=== PATIENT | male | born 1975 | race African-American/Black ===

== ENCOUNTER 2017-02-02 21:51 | Inpatient (IN) ==
[2017-02-02] MEDS ORDERED: 0.9 % Sodium Chloride 1,000 ML IVC ONE (22:51)
[2017-02-02] MEDS ORDERED: Aspirin 325 MG TABLET PO ONE (23:35)
[2017-02-02] MEDS ORDERED: Nitroglycerin 1 INCH/GM PACKET TP ONE (23:35)
[2017-02-02 23:39] LABS: Basophils % 0.2 %; Eosinophils % 0.3 %; Hematocrit 48.6 % (37.5-50.1); Hemoglobin 17.5 g/dL (12.9-16.9); Immature Granulocytes % 0.3 % (0-4); Immature Platelets 4.6 % (1.1-6.1); Lymphocytes # 1.7 K/mcL (0.6-4.6); Lymphocytes % 16.3 %; Mean Corpuscular Hemoglobin 29.8 pg (28.0-33.3); Mean Corpuscular Volume 82.7 fL (83.0-100.0); Mean Platelet Volume 10.2 fL (9.4-12.4); Monocytes % 9.6 %; Neutrophils # 7.6 K/mcL (1.6-8.9); Platelet Count 188 K/mcL (140-400); Red Blood Count 5.88 M/mcL (4.19-5.50); Red Cell Distribution Width 11.9 % (11.5-14.5); Segmented Neutrophils % 73.3 %
[2017-02-02] MEDS ORDERED: Heparin 25,000 UNIT/500 ML D5W 25,000 UNIT/500 ML MLS IVC SCH (23:45)
[2017-02-02] MEDS ORDERED: *HR* Heparin 5,000 UNIT/ML VIAL IVP ONE (23:58)
[2017-02-02] MEDS ORDERED: *HR* Heparin 5,000 UNIT/ML VIAL IVP PRN ×2 (23:58)
[2017-02-03 00:12] LABS: Alanine Aminotransferase 37 Units/L (0-55); Albumin 5.4 g/dL (3.5-5.0); Albumin/Globulin Ratio 1.5 (1.1-2.2); Alkaline Phosphatase 72 Units/L (38-126); Aspartate Amino Transferase 90 Units/L (5-34); BUN/Creatinine Ratio 30 (6-26); Bilirubin,Direct 0.9 mg/dL (0.0-0.5); Bilirubin,Indirect 1.5 mg/dL (0.0-1.2); Blood Urea Nitrogen 85 mg/dL (8-26); Carbon Dioxide 26 mEq/L (19-29); Chloride 87 mEq/L (98-109); Globulin 3.5 g/dL (2.4-3.5); Glucose 102 mg/dL (70-99); Osmolality,Calculated 302 (280-300); Potassium 3.7 mEq/L (3.5-4.5); Sodium 133 mEq/L (136-145); Total Protein 8.9 g/dL (6.0-8.3); eGFR For African Americans 29 (> 60); eGFR For Non-African Americans 24 (> 60)
[2017-02-03 00:14] LABS: Bilirubin,Total 2.4 mg/dL (0.2-1.2)
[2017-02-03 00:28] LABS: INR 1.2; Prothrombin Time 12.6 Seconds (9.4-12.1)
[2017-02-03 00:28] LABS: Bilirubin,Urine Small (Negative); Blood,Urine Moderate (Negative); Clarity,Urine Cloudy (Clear); Color,Urine Yellow (Yellow); Glucose,Urine (UA) Normal (Normal); Ketones,Urine 15 mg/dL (Negative); Leukocyte Esterase,Urine Negative (Negative); Nitrite,Urine Negative (Negative); PH,Urine 5.5 pH Units (5.0-8.0); Protein,Urine 30 mg/dL (Neg-Trace); Specific Gravity,Urine 1.026 (1.010-1.025); Urobilinogen,Urine Normal (Normal)
[2017-02-03 00:30] LABS: Bacteria,Urine None Seen per hpf (None-Few); Squamous Epithelial Cell,Urine Many per lpf (None-Few); WBC,Urine 0-3 per hpf (0-3)
[2017-02-03 00:31] LABS: Activated Partial Thrombo Time 28.5 Seconds (26.0-36.0)
[2017-02-03 00:35] LABS: Amphetamine Screen,Urine Negative ng/mL (Cutoff=1000); Barbiturate Screen,Urine Negative ng/mL (Cutoff=200); Benzodiazepines Screen,Urine Negative ng/mL (Cutoff=200); Cannabinoid Screen,Urine Positive ng/mL (Cutoff = 50); Cocaine Screen,Urine Negative ng/mL (Cutoff= 300); Opiate Screen,Urine Negative ng/mL (Cutoff=300); Phencyclidine Screen,Urine Negative ng/mL (Cutoff=25)
[2017-02-03 00:41] LABS: Hyaline Casts,Urine Few per lpf (None-Few)
[2017-02-03 00:49] LABS: Ethanol < 10 mg/dL (0-10); Salicylate < 5.0 mg/dL (15-30)
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
[2017-02-03 01:07] LABS: Thyroid Stimulating Hormone 1.374 mcIU/mL (0.350-4.840)
[2017-02-03] MEDS ORDERED: Acetaminophen 325 MG TABLET PO PRN (01:25)
[2017-02-03] MEDS ORDERED: Ondansetron 4 MG/2 ML VIAL IVP PRN (01:25)
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
[2017-02-03] MEDS: 0.9 % Sodium Chloride 1,000 ML IVC SCH ×3 (03:02→21:41)
[2017-02-03] MEDS: levETIRAcetam 250 MG TABLET PO SCH ×3 (03:19→21:41)
[2017-02-03] MEDS: *HR* Heparin 5,000 UNIT/ML VIAL SQ SCH ×3 (06:29→21:40)
[2017-02-03 06:51] LABS: Albumin/Globulin Ratio 1.4 (1.1-2.2); Calcium 8.7 mg/dL (8.6-10.8); Globulin 2.9 g/dL (2.4-3.5)
[2017-02-03 06:58] LABS: Albumin 4.1 g/dL (3.5-5.0); Bilirubin,Total 2.3 mg/dL (0.2-1.2); Potassium 3.5 mEq/L (3.5-4.5)
[2017-02-03 07:00] LABS: Basophils % 0.3 %; Eosinophils # 0.1 K/mcL (0.0-0.6); Eosinophils % 0.9 %; Hematocrit 41.4 % (37.5-50.1); Immature Granulocytes % 0.3 % (0-4); Lymphocytes % 25.1 %; Mean Corpuscular Hemoglobin 29.3 pg (28.0-33.3); Mean Corpuscular Volume 83.6 fL (83.0-100.0); Mean Platelet Volume 9.7 fL (9.4-12.4); Monocytes # 0.7 K/mcL (0.0-1.3); Monocytes % 9.1 %; Neutrophils # 5.1 K/mcL (1.6-8.9); Platelet Count 171 K/mcL (140-400); Red Blood Count 4.95 M/mcL (4.19-5.50); Red Cell Distribution Width 11.9 % (11.5-14.5); Segmented Neutrophils % 64.3 %
[2017-02-03 07:23] LABS: Hemoglobin 14.5 g/dL (12.9-16.9)
[2017-02-03] MEDS: Divalproex (12 HR) 500 MG TABLET PO SCH ×2 (08:54→21:41)
--- NOTE | 2017-02-03 15:39 | Electrocardiograph Report ---
[address] [place], [place] [address] Test Date: 2017-02-02 Pat Name: Austen Bacon Department: 102 Room: 2NE22 Gender: M Stem Sizer: Ekp : 1975 Requested By: Ludin Lincoln Order Number: [id number] Reading MD: Nick Trinh Measurements Intervals [place] Rate: 93 P: 84 [place]: 127 QRS: 102 QRSD: 93 T: 53 QT: 351 QTc: 401 Interpretive Statements SINUS RHYTHM RIGHT ATRIAL ENLARGEMENT INCOMPLETE RIGHT BUNDLE BRANCH BLOCK POSSIBLE RIGHT VENTRICULAR HYPERTROPHY ST ELEVATION, CONSIDER ANTERIOR INJURY Electronically Signed On 02-03-2017 15:37:18 EDT by Nick Trinh
--- NOTE | 2017-02-03 15:40 | Electrocardiograph Report ---
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
--- NOTE | 2017-02-03 17:35 | Event Note ---
Date of Encounter: 02/03/17 Time of Encounter: 09:15 41-year-old male with history of cocaine abuse, cardiac arrest and anoxic brain injury following cocaine overdose, is admitted with confusion and altered mental status. Patient was also noted to have severe dehydration with acute kidney injury and abnormal EKG, which likely consists of old changes. Patient seen and examined at bedside. Reports no chest pain, shortness of breath. He is noted to be alert and oriented to person and place. He does not remember the reason for his admission. Chest-S1, S2 heard. Regular rate and rhythm. Lungs are clear to auscultation. Labs reviewed-creatinine is noted to be improving to 1.8 today, mild troponin leak noted to be normalized today, slightly elevated AST and total bilirubin EKG shows ST elevation in anterior leads, old changes Acute encephalopathy-could be related to marijuana use in the setting of an anoxic brain injury. Currently improving, almost at baseline. Urine drug screen positive for marijuana. Serum alcohol level normal. office services clerk consult, anticipate discharge in a.m. Mild troponin elevation-may not be related to [place]. Likely due to dehydration. Pre renal acute kidney injury secondary to dehydration-patient was noted to have poor oral intake for the last few days and found to be wandering on the streets. Continue IV hydration, serum creatinine noted to be improving. Continue to monitor and avoid nephrotoxic agents.
[2017-02-04] MEDS: *HR* Heparin 5,000 UNIT/ML VIAL SQ SCH ×3 (06:38→21:08)
[2017-02-04] MEDS: 0.9 % Sodium Chloride 1,000 ML IVC SCH (06:39)
[2017-02-04 06:57] LABS: Alanine Aminotransferase 28 Units/L (0-55); Albumin/Globulin Ratio 1.3 (1.1-2.2); Alkaline Phosphatase 48 Units/L (38-126); Aspartate Amino Transferase 60 Units/L (5-34); BUN/Creatinine Ratio 29 (6-26); Bilirubin,Total 1.7 mg/dL (0.2-1.2); Calcium 8.3 mg/dL (8.6-10.8); Carbon Dioxide 30 mEq/L (19-29); Chloride 101 mEq/L (98-109); Globulin 2.5 g/dL (2.4-3.5); Glucose 84 mg/dL (70-99); Osmolality,Calculated 288 (280-300); Sodium 137 mEq/L (136-145); Total Protein 5.7 g/dL (6.0-8.3); eGFR For African Americans > 60 (> 60); eGFR For Non-African Americans > 60 (> 60)
[2017-02-04 06:59] LABS: Albumin 3.2 g/dL (3.5-5.0); Blood Urea Nitrogen 27 mg/dL (8-26)
[2017-02-04] MEDS: levETIRAcetam 250 MG TABLET PO SCH ×2 (09:29→21:09)
[2017-02-04] MEDS: Divalproex (12 HR) 500 MG TABLET PO SCH ×2 (09:30→21:10)
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
[2017-02-05] MEDS: *HR* Heparin 5,000 UNIT/ML VIAL SQ SCH ×3 (06:02→20:15)
[2017-02-05] MEDS: levETIRAcetam 250 MG TABLET PO SCH ×2 (08:13→20:14)
[2017-02-05] MEDS: Divalproex (12 HR) 500 MG TABLET PO SCH ×2 (08:13→20:15)
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
[2017-02-05] MEDS: Sennosides/Docusate Sodium TABLET PO SCH ×2 (16:05→20:15)
[2017-02-05] MEDS: Mirtazapine 15 MG TABLET PO SCH (20:15)
[2017-02-06] MEDS: *HR* Heparin 5,000 UNIT/ML VIAL SQ SCH ×3 (05:06→21:10)
[2017-02-06] MEDS: levETIRAcetam 250 MG TABLET PO SCH ×2 (08:01→21:11)
[2017-02-06] MEDS: Sennosides/Docusate Sodium TABLET PO SCH ×2 (08:02→21:11)
[2017-02-06] MEDS: Divalproex (12 HR) 500 MG TABLET PO SCH ×2 (08:02→21:10)
--- NOTE | 2017-02-06 11:45 | Internal Med Progress Note ---
Date of Encounter: 02/06/17 Time of Encounter: 11:38 - Assessment and plan (1) MARIZA (acute kidney injury) Current Visit: Yes Status: Resolved Assessment and plan: Patient is currently medically stable. social services director is on board to safely discharge patient. Given his history of an anoxic brain injury and admission for acute renal failure and dehydration due to being found on the streets, he is at risk for further morbidity and readmission and he cannot live alone at this time. He would therefore need 24-hour supervision at home or long-term care placement. He is more talkative today and refuses to be placed at a facility as he would have no friends and does not like to be living with strangers, and he wants to continue to smoke. Continue to monitor. Improving appetite with Mirtazapine; continue Senna and Colace; (2) Dehydration Current Visit: Yes Status: Resolved (3) Elevated troponin Current Visit: Yes Status: Resolved (4) Acute encephalopathy Current Visit: Yes Status: Resolved (5) Cocaine abuse Current Visit: Yes Status: Chronic (6) History of seizure disorder Current Visit: Yes Status: Chronic Assessment and plan: Continue antiepileptics. Seizure precautions. (7) Anoxic brain injury Current Visit: Yes Status: Chronic - Subjective Interval history: Denies new complaints; reports getting tired of waiting in the hospital and wants to go home; does not want to be placed at [facility] care facility; talks more today; improved appetite; - Constitutional Vitals: Temp Pulse Resp BP Pulse Ox 97.9 F 58 18 119/77 97 02/06/17 07:51 02/06/17 07:51 02/06/17 07:51 02/06/17 07:51 02/06/17 07:51 General appearance: Present: cooperative, A&O X 2 (Alert and oriented to self and place; ), underweight. Absent: answers questions appropriately - Respiratory Respiratory exam: Present: CTAB. Absent: accessory muscle use, rales, rhonchi, wheezes - Cardiovascular Cardiovascular exam: Present: RRR, +S1, +S2. Absent: diastolic murmur, gallop, rubs, systolic murmur Internal Medicine: Result - Labs CBC & Chem 7: 02/03/17 06:26 02/04/17 06:00 - ABG Interpretation ABG results: PT/INR, D-dimer PT 12.6 Seconds (9.4-12.1) H 02/02/17 00:15 Consult Discharge Plan - Plan Additional Instructions: F/up with PCP in 1-2 weeks Referrals: Nick Moreno MD [Primary Care Provider] - 02/11/17 3:00 pm
[2017-02-06] MEDS: Nicotine 21 MG PATCH.TD24 TD SCH (16:18)
[2017-02-06] MEDS ORDERED: clonazePAM 1 MG TABLET PO ONE (21:08)
[2017-02-06] MEDS: Mirtazapine 15 MG TABLET PO SCH (21:11)
[2017-02-07] MEDS: *HR* Heparin 5,000 UNIT/ML VIAL SQ SCH (05:52)
[2017-02-07 08:41] VITALS: BP 93/66
[2017-02-07] MEDS: Divalproex (12 HR) 500 MG TABLET PO SCH (08:49)
[2017-02-07] MEDS: Sennosides/Docusate Sodium TABLET PO SCH (08:49)
[2017-02-07] MEDS: levETIRAcetam 250 MG TABLET PO SCH (08:49)
[2017-02-07] MEDS: Nicotine 21 MG PATCH.TD24 TD SCH (08:50)
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
== END 2017-02-07 14:09 | disposition home or self-care (01) | DRG 469 ==
LOC: EMEROO 21:51 → 2NENU 21:51
PROVIDERS: ADMIT Internal Medicine; ATTEND Internal Medicine

== ENCOUNTER 2017-07-21 14:50 | Observation (INO) ==
[2017-07-21] MEDS ORDERED: 0.9 % Sodium Chloride 1,000 ML IVC ONE ×2 (14:53→17:06)
--- NOTE | 2017-07-21 15:02 | Emergency Department Note ---
Disposition Clinical Impression: Altered awareness, transient Disposition: Admitted As Inpatient Condition: Undetermined Time of Disposition: 18:12 Altered Mental Status HPI - General Chief Complaint: ED Altered Mental Status Stated Complaint: AMS Time Seen by Provider: 07/21/17 14:53 Nursing Notes Reviewed: Yes Vital Signs Reviewed: Yes - History of Present Illness HPI Narrative: 42-year-old male who was found acutely confused after leaving [facility] within the past hour. EMS states the patient was unable to provide them with any information concerning his background, past medical history. EMS states blood sugar was 119. Patient alert and oriented only to himself. Patient denies any symptoms pain or otherwise. He states that he has a very bad memory but cannot provide reasons why. - Related Data Home Medications Medication Instructions Recorded Confirmed Divalproex (12 HR) [Depakote (12 1,000 mg PO HS 02/03/17 02/03/17 HR)] Divalproex (12 HR) [Depakote (12 500 mg PO QAM 02/03/17 02/03/17 HR)] LevETIRAcetam [Keppra] 1,000 mg PO BID 02/03/17 07/21/17 Allergies Allergy/AdvReac Type Severity Reaction Status Date / Time No Known Allergies Allergy Verified 07/21/17 14:51 All systems ED: reviewed and negative except as stated. Review of Systems: As Per HPI Constitutional: Denies: fever, chills, weakness Eyes: Denies: vision change ENT ED: Denies: congestion Cardiovascular: Denies: chest pain Respiratory: Denies: cough, dyspnea Gastrointestinal: Denies: abdominal pain, nausea, vomiting Genitourinary: Denies: urgency, dysuria Musculoskeletal: Denies: back pain, neck pain Integumentary: Denies: rash Neurological: Denies: headache Psychiatric: Denies: anxiety Endocrine: Denies: fatigue Past Medical History - Past Medical History Attestation: Yes The following information was validated with the patient. Source: patient, nursing notes reviewed Medical history: Reports: myocardial infarction, seizures Surgical history: Reports: orthopedic, other Psychiatric history: Reports: no psych history - Social History Smoking Status: Current every day smoker Smokeless Tobacco Status: No Alcohol use: Reports: occasionally Drug use: Reports: marijuana Physical Exam Vital Signs Temperature 98.6 F 07/21/17 14:51 Pulse Rate 104 07/21/17 14:51 Respiratory Rate 20 07/21/17 14:51 Blood Pressure 141/104 07/21/17 14:51 O2 Sat by Pulse Oximetry 99 07/21/17 14:51 Temperature 98.6 F 07/21/17 14:51 Pulse Rate 104 07/21/17 14:51 Respiratory Rate 20 07/21/17 14:51 Blood Pressure 141/104 07/21/17 14:51 O2 Sat by Pulse Oximetry 99 07/21/17 14:51 Oxygen Delivery Oxygen Delivery Room Air 42-year-old male who is alert and oriented 3. - General Limitations: no limitations General appearance: alert, in no apparent distress - Head Head exam: atraumatic, normocephalic, normal inspection - Eye Eye exam: Present: normal appearance, PERRL, EOMI - ENT ENT exam: normal exam, normal oropharynx, mucous membranes moist - Neck Neck exam: Present: normal inspection, full ROM, trachea midline - Chest Chest inspection: Present: normal inspection, symmetric chest wall rise - Respiratory Respiratory exam: Present: normal lung sounds bilaterally - Cardiovascular Cardiovascular exam: Present: normal rhythm, tachycardia, normal heart sounds - Abdominal Exam Abdominal exam: Present: soft, Non-Tender. Absent: tenderness, distention, guarding, rebound, rigidity - Extremities Exam Extremities exam: Present: normal inspection, full ROM. Absent: tenderness, pedal edema - Back Exam Back exam: Present: normal inspection, full ROM. Absent: tenderness, CVA tenderness (R), CVA tenderness (L) - Neurological Exam Neurological exam: Present: alert, oriented X3, CN II-XII intact, normal gait. Absent: motor sensory deficit, reflexes normal - Skin Skin exam: Present: warm, dry, intact, normal color Course - Reevaluation(s) Reevaluation #1: 1635: Upon reexamination patient still alert and oriented 3 and has no complaints Time: 16:35 Reevaluation #2: 3324: Patient is alert but an oriented. Patient is confused and is trying to climb out of bed. Patient sweating profusely. Patient's labs showed no acute abnormalities. We are currently waiting on urinalysis the patient has not been cooperative. Straight catheter has been ordered. urine sent down to the lab Both chest x-ray and head CT were negative for any abnormalities Time: 16:54 Reevaluation #3: 1718 hrs: Patient currently alert and oriented 3 Time: 17:18 Additional Reevaluation(s): 1810 hrs.: Patient's urine positive for marijuana only - Consultations Consultation #1: Dr. Lu the hospitalist has accepted patient for admission Time: 17:18 Vital Signs Temperature 98.6 F 07/21/17 14:51 Pulse Rate 104 07/21/17 14:51 Respiratory Rate 20 07/21/17 14:51 Blood Pressure 141/104 07/21/17 14:51 O2 Sat by Pulse Oximetry 99 07/21/17 14:51 Temperature 98.6 F 07/22/17 03:34 Pulse Rate 93 07/22/17 03:34 Respiratory Rate 16 07/22/17 03:34 Blood Pressure 142/85 07/22/17 03:34 O2 Sat by Pulse Oximetry 97 07/22/17 03:34 Oxygen Delivery Oxygen Delivery Room Air Altered Mental Status - MDM Narrative Medical decision making narrative: Recent history of confusing concern for possible electrolyte abnormality, CVA, TIA, hepatic encephalopathy. On review patient's previous records she shows a previous admission for acute kidney injury secondary to severe dehydration and a history of anoxic brain injury with history of cocaine abuse. Patient's history explains why he has memory issues During patient's evaluation patient showed waxing and waning levels of awareness. Patient became acutely diaphoretic and severely confused. Patient was alert but unable to provide his name or new where he was. Patient had already received 1 L of fluid and will be starting on a second liter of fluid. It is unclear why patient is currently having these periods of altered awareness but patient has no one at home to care for him and will require admission. fitness worker has spoken to the patient. She stated that the patient seemed very agitated. She states that he has been admitted for social reasons in the past. Patient was accepted for admission by hospitalist Dr. Lu. - Lab Data Lab results reviewed: Yes I reviewed the patient's lab results. Lab results narrative: Short CBC 07/21/17 Range/Units 15:19 WBC 10.1 (4.3-11.1) K/mcL Hgb 17.1 H (12.9-16.9) g/dL Hct 50.5 H (37.5-50.1) % Plt Count 239 (140-400) K/mcL Neutrophils # 8.1 (1.6-8.9) K/mcL BMP 07/21/17 Range/Units 15:19 Sodium 137 (136-145) mEq/L Potassium 3.9 (3.5-5.1) mEq/L Chloride 101 (98-107) mEq/L Carbon Dioxide 27 (23-29) mEq/L BUN 17 (6-20) mg/dL Creatinine 0.92 (0.70-1.30) mg/dL Glucose 115 H (70-105) mg/dL Calcium 10.4 H (8.6-10.3) mg/dL Cardiac Enzymes 07/21/17 Range/Units 15:19 Troponin I 0.03 (< 0.04) ng/mL Liver Function 07/21/17 Range/Units 15:19 Total Bilirubin 1.0 (0.3-1.0) mg/dL Direct Bilirubin 0.2 (0.0-0.2) mg/dL AST 19 (13-39) Units/L ALT 12 (7-52) Units/L Alkaline Phosphatase 74 (34-104) Units/L Albumin 5.7 (3.5-5.7) g/dL Urine 07/21/17 Range/Units 17:07 Urine Color Dark Yellow (Yellow) Urine Clarity Clear (Clear) Urine pH 5.5 (5.0-8.0) pH Units Ur Specific [place] 1.030 H (1.010-1.025) Urine Protein 100 H (Neg-Trace) mg/dL Urine Glucose (UA) Normal (Normal) mg/dL Result diagrams: 07/21/17 15:19 07/21/17 15:19 Lab Results 07/21/17 07/21/17 07/21/17 Range/Units 15:19 15:19 15:19 WBC 10.1 (4.3-11.1) K/mcL RBC 5.73 H (4.19-5.50) M/mcL Hgb 17.1 H (12.9-16.9) g/dL Hct 50.5 H (37.5-50.1) % MCV 88.1 (83.0-100.0) fL MCH 29.8 (28.0-33.3) pg MCHC 33.9 (31.6-35.5) g/dL RDW 12.5 (11.5-14.5) % Plt Count 239 (140-400) K/mcL MPV 9.0 L (9.4-12.4) fL Immature Gran % 0.2 (0-4) % Seg Neutrophils % 79.8 % Lymphocytes % 12.4 % Monocytes % 7.4 % Eosinophils % 0.0 % Basophils % 0.2 % Neutrophils # 8.1 (1.6-8.9) K/mcL Lymphocytes # 1.3 (0.6-4.6) K/mcL Monocytes # 0.8 (0.0-1.3) K/mcL Eosinophils # 0.0 (0.0-0.6) K/mcL Basophils # 0.0 (0.0-0.2) K/mcL PT 11.6 (9.4-12.1) Seconds INR 1.1 APTT Cancelled Sodium 137 (136-145) mEq/L Potassium 3.9 (3.5-5.1) mEq/L Chloride 101 (98-107) mEq/L Carbon Dioxide 27 (23-29) mEq/L BUN 17 (6-20) mg/dL Creatinine 0.92 (0.70-1.30) mg/dL Est GFR ( Amer) > 60 (> 60) Est GFR (Non-Af Amer) > 60 (> 60) BUN/Creatinine Ratio 18 (6-26) Glucose 115 H (70-105) mg/dL Calculated Osmolality 286 (280-300) Calcium 10.4 H (8.6-10.3) mg/dL Total Bilirubin 1.0 (0.3-1.0) mg/dL Direct Bilirubin 0.2 (0.0-0.2) mg/dL Indirect Bilirubin 0.8 (0.0-1.2) mg/dL AST 19 (13-39) Units/L ALT 12 (7-52) Units/L Alkaline Phosphatase 74 (34-104) Units/L Ammonia (16-53) mcmol/L Creatine Kinase 164 (30-223) Units/L Troponin I (< 0.04) ng/mL Serum Total Protein 8.2 (6.4-8.9) g/dL Albumin 5.7 (3.5-5.7) g/dL Globulin 2.5 (2.4-3.5) g/dL Albumin/Globulin Ratio 2.3 H (1.1-2.2) Urine Color (Yellow) Urine Clarity (Clear) Urine pH (5.0-8.0) pH Units Ur Specific [place] (1.010-1.025) Urine Protein (Neg-Trace) mg/dL Urine Glucose (UA) (Normal) mg/dL Urine Ketones (Negative) mg/dL Urine Blood (Negative) Urine Nitrite (Negative) Urine Bilirubin (Negative) Urine Urobilinogen (Normal) mg/dL Ur Leukocyte Esterase (Negative) Urine Microscopic RBC (0-3) per hpf Urine Microscopic WBC (0-3) per hpf Ur Squamous Epith Cells (None-Few) per lpf Urine Bacteria (None-Few) per hpf Hyaline Casts (None-Few) per lpf Ur Culture Indicated? (NO) Salicylates (15.0-30.0) mg/dL Urine Opiates Screen (Cxhvrp=358) ng/mL Acetaminophen (10-30) mcg/mL Ur Barbiturates Screen (Rsbevl=116) ng/mL Valproic Acid < 2 L (50-100) mcg/mL Ur Phencyclidine Scrn (Cutoff=25) ng/mL Ur Amphetamines Screen (Eycbzp=8009) ng/mL U Benzodiazepines Scrn (Oblhgf=006) ng/mL Urine Cocaine Screen (Cutoff= 300) ng/mL U Marijuana (THC) Screen (Cutoff = 50) ng/mL Ethyl Alcohol < 10 (0-10) mg/dL 07/21/17 07/21/17 07/21/17 Range/Units 15:19 15:19 15:19 WBC (4.3-11.1) K/mcL RBC (4.19-5.50) M/mcL Hgb (12.9-16.9) g/dL Hct (37.5-50.1) % MCV (83.0-100.0) fL MCH (28.0-33.3) pg MCHC (31.6-35.5) g/dL RDW (11.5-14.5) % Plt Count (140-400) K/mcL MPV (9.4-12.4) fL Immature Gran % (0-4) % Seg Neutrophils % % Lymphocytes % % Monocytes % % Eosinophils % % Basophils % % Neutrophils # (1.6-8.9) K/mcL Lymphocytes # (0.6-4.6) K/mcL Monocytes # (0.0-1.3) K/mcL Eosinophils # (0.0-0.6) K/mcL Basophils # (0.0-0.2) K/mcL PT (9.4-12.1) Seconds INR APTT Sodium (136-145) mEq/L Potassium (3.5-5.1) mEq/L Chloride (98-107) mEq/L Carbon Dioxide (23-29) mEq/L BUN (6-20) mg/dL Creatinine (0.70-1.30) mg/dL Est GFR ( Amer) (> 60) Est GFR (Non-Af Amer) (> 60) BUN/Creatinine Ratio (6-26) Glucose (70-105) mg/dL Calculated Osmolality (280-300) Calcium (8.6-10.3) mg/dL Total Bilirubin (0.3-1.0) mg/dL Direct Bilirubin (0.0-0.2) mg/dL Indirect Bilirubin (0.0-1.2) mg/dL AST (13-39) Units/L ALT (7-52) Units/L Alkaline Phosphatase (34-104) Units/L Ammonia 39 (16-53) mcmol/L Creatine Kinase (30-223) Units/L Troponin I 0.03 (< 0.04) ng/mL Serum Total Protein (6.4-8.9) g/dL Albumin (3.5-5.7) g/dL Globulin (2.4-3.5) g/dL Albumin/Globulin Ratio (1.1-2.2) Urine Color (Yellow) Urine Clarity (Clear) Urine pH (5.0-8.0) pH Units Ur Specific [place] (1.010-1.025) Urine Protein (Neg-Trace) mg/dL Urine Glucose (UA) (Normal) mg/dL Urine Ketones (Negative) mg/dL Urine Blood (Negative) Urine Nitrite (Negative) Urine Bilirubin (Negative) Urine Urobilinogen (Normal) mg/dL Ur Leukocyte Esterase (Negative) Urine Microscopic RBC (0-3) per hpf Urine Microscopic WBC (0-3) per hpf Ur Squamous Epith Cells (None-Few) per lpf Urine Bacteria (None-Few) per hpf Hyaline Casts (None-Few) per lpf Ur Culture Indicated? (NO) Salicylates < 5.0 L (15.0-30.0) mg/dL Urine Opiates Screen (Zoykuw=906) ng/mL Acetaminophen < 1.0 L (10-30) mcg/mL Ur Barbiturates Screen (Bfinxr=079) ng/mL Valproic Acid (50-100) mcg/mL Ur Phencyclidine Scrn (Cutoff=25) ng/mL Ur Amphetamines Screen (Gjfash=4921) ng/mL U Benzodiazepines Scrn (Matdxp=835) ng/mL Urine Cocaine Screen (Cutoff= 300) ng/mL U Marijuana (THC) Screen (Cutoff = 50) ng/mL Ethyl Alcohol (0-10) mg/dL 07/21/17 07/21/17 Range/Units 17:07 17:07 WBC (4.3-11.1) K/mcL RBC (4.19-5.50) M/mcL Hgb (12.9-16.9) g/dL Hct (37.5-50.1) % MCV (83.0-100.0) fL MCH (28.0-33.3) pg MCHC (31.6-35.5) g/dL RDW (11.5-14.5) % Plt Count (140-400) K/mcL MPV (9.4-12.4) fL Immature Gran % (0-4) % Seg Neutrophils % % Lymphocytes % % Monocytes % % Eosinophils % % Basophils % % Neutrophils # (1.6-8.9) K/mcL Lymphocytes # (0.6-4.6) K/mcL Monocytes # (0.0-1.3) K/mcL Eosinophils # (0.0-0.6) K/mcL Basophils # (0.0-0.2) K/mcL PT (9.4-12.1) Seconds INR APTT Sodium (136-145) mEq/L Potassium (3.5-5.1) mEq/L Chloride (98-107) mEq/L Carbon Dioxide (23-29) mEq/L BUN (6-20) mg/dL Creatinine (0.70-1.30) mg/dL Est GFR ( Amer) (> 60) Est GFR (Non-Af Amer) (> 60) BUN/Creatinine Ratio (6-26) Glucose (70-105) mg/dL Calculated Osmolality (280-300) Calcium (8.6-10.3) mg/dL Total Bilirubin (0.3-1.0) mg/dL Direct Bilirubin (0.0-0.2) mg/dL Indirect Bilirubin (0.0-1.2) mg/dL AST (13-39) Units/L ALT (7-52) Units/L Alkaline Phosphatase (34-104) Units/L Ammonia (16-53) mcmol/L Creatine Kinase (30-223) Units/L Troponin I (< 0.04) ng/mL Serum Total Protein (6.4-8.9) g/dL Albumin (3.5-5.7) g/dL Globulin (2.4-3.5) g/dL Albumin/Globulin Ratio (1.1-2.2) Urine Color Dark Yellow (Yellow) Urine Clarity Clear (Clear) Urine pH 5.5 (5.0-8.0) pH Units Ur Specific [place] 1.030 H (1.010-1.025) Urine Protein 100 H (Neg-Trace) mg/dL Urine Glucose (UA) Normal (Normal) mg/dL Urine Ketones 40 H (Negative) mg/dL Urine Blood Negative (Negative) Urine Nitrite Negative (Negative) Urine Bilirubin Small H (Negative) Urine Urobilinogen Normal (Normal) mg/dL Ur Leukocyte Esterase Negative (Negative) Urine Microscopic RBC 5-15 H (0-3) per hpf Urine Microscopic WBC 3-5 H (0-3) per hpf Ur Squamous Epith Cells Many H (None-Few) per lpf Urine Bacteria None Seen (None-Few) per hpf Hyaline Casts Few (None-Few) per lpf Ur Culture Indicated? NO (NO) Salicylates (15.0-30.0) mg/dL Urine Opiates Screen Negative (Toeaqu=523) ng/mL Acetaminophen (10-30) mcg/mL Ur Barbiturates Screen Negative (Psbkza=082) ng/mL Valproic Acid (50-100) mcg/mL Ur Phencyclidine Scrn Negative (Cutoff=25) ng/mL Ur Amphetamines Screen Negative (Hdocit=4639) ng/mL U Benzodiazepines Scrn Negative (Dlwbdp=894) ng/mL Urine Cocaine Screen Negative (Cutoff= 300) ng/mL U Marijuana (THC) Screen Positive H (Cutoff = 50) ng/mL Ethyl Alcohol (0-10) mg/dL - Radiology Data Radiology results reviewed: Yes I reviewed the patient's radiology results. Chest X-Ray 07/21/17 14:53 IMPRESSION: No acute process. D/ / Sofya Block MD / Sofya Block MD Interpreting Provider: Sofya Block MD Head CT 07/21/17 15:03 IMPRESSION: No acute intracranial abnormality. D/ / Carter Powell MD / Carter Powell MD Interpreting Provider: Carter Powell MD - EKG Data EKG attestation: Yes I reviewed and interpreted this EKG. EKG results narrative: EKG taken 07/21/2017 at 1502 hrs. shows sinus tachycardia rate of [address] elevations or depressions and a leads, no cures were not QT prolongation. CK to comparison taken 02/02/2017 shows sinus rhythm at a rate of 90 beats minute with appears to be ST elevations in V2.
[2017-07-21 15:33] LABS: Basophils % 0.2 %; Hematocrit 50.5 % (37.5-50.1); Hemoglobin 17.1 g/dL (12.9-16.9); Immature Granulocytes % 0.2 % (0-4); Lymphocytes # 1.3 K/mcL (0.6-4.6); Lymphocytes % 12.4 %; Mean Corpuscular HGB Conc 33.9 g/dL (31.6-35.5); Mean Corpuscular Hemoglobin 29.8 pg (28.0-33.3); Mean Corpuscular Volume 88.1 fL (83.0-100.0); Monocytes # 0.8 K/mcL (0.0-1.3); Monocytes % 7.4 %; Neutrophils # 8.1 K/mcL (1.6-8.9); Platelet Count 239 K/mcL (140-400); Red Blood Count 5.73 M/mcL (4.19-5.50); Red Cell Distribution Width 12.5 % (11.5-14.5); Segmented Neutrophils % 79.8 %
[2017-07-21 15:36] LABS: INR 1.1; Prothrombin Time 11.6 Seconds (9.4-12.1)
[2017-07-21 15:42] LABS: Alanine Aminotransferase 12 Units/L (7-52); Albumin 5.7 g/dL (3.5-5.7); Albumin/Globulin Ratio 2.3 (1.1-2.2); Alkaline Phosphatase 74 Units/L (34-104); Aspartate Amino Transferase 19 Units/L (13-39); BUN/Creatinine Ratio 18 (6-26); Bilirubin,Direct 0.2 mg/dL (0.0-0.2); Bilirubin,Indirect 0.8 mg/dL (0.0-1.2); Blood Urea Nitrogen 17 mg/dL (6-20); Calcium 10.4 mg/dL (8.6-10.3); Carbon Dioxide 27 mEq/L (23-29); Chloride 101 mEq/L (98-107); Creatine Kinase 164 Units/L (30-223); Globulin 2.5 g/dL (2.4-3.5); Glucose 115 mg/dL (70-105); Osmolality,Calculated 286 (280-300); Potassium 3.9 mEq/L (3.5-5.1); Sodium 137 mEq/L (136-145); Total Protein 8.2 g/dL (6.4-8.9); eGFR For African Americans > 60 (> 60); eGFR For Non-African Americans > 60 (> 60)
--- NOTE | 2017-07-21 15:43 | Emergency Department Note ---
START Narrative - START START: I examined this patient and my medical decision-making was reviewed with the Resident Physician, Maverick Baptiste. I agree with the documented findings, disposition and treatment plan as described except to the extent set forth below , Additionally I have personally performed a face to face evaluation on this patient. I have reviewed and agree with the care plan. Briefly: 42-year-old male brought in by EMS prior to my arrival on shift for altered mental status. Patient was recently released from a local law enforcement custody for reasons that are unclear to us. He states that they were unable to get blood pressure because he was uncooperative. Patient says he has memory problems but seems to be lying in bed in no acute distress denies any acute pain states that it is the year 2017 at its June and this is [facility]. Patient has no external signs of trauma. Denies any illicit drug use at this time. Is awake and alert GCS 14+. Patient will get noncontrast CT the head urinalysis urine tox screen screening labs EKG chest x-ray. Disposition pending , we will need to find out more information either from EMS or law enforcement recheck old records. Disposition pending, providing 30 minutes of critical care services for this patient. Blood glucose per EMS was 119.
[2017-07-21 16:09] LABS: Acetaminophen < 1.0 mcg/mL (10-30); Ethanol < 10 mg/dL (0-10); Salicylate < 5.0 mg/dL (15.0-30.0)
[2017-07-21 17:19] LABS: Bilirubin,Urine Small (Negative); Blood,Urine Negative (Negative); Clarity,Urine Clear (Clear); Color,Urine Dark Yellow (Yellow); Glucose,Urine (UA) Normal (Normal); Ketones,Urine 40 mg/dL (Negative); Leukocyte Esterase,Urine Negative (Negative); Nitrite,Urine Negative (Negative); PH,Urine 5.5 pH Units (5.0-8.0); Protein,Urine 100 mg/dL (Neg-Trace); Urobilinogen,Urine Normal (Normal)
[2017-07-21 17:22] LABS: Amphetamine Screen,Urine Negative ng/mL (Cutoff=1000); Bacteria,Urine None Seen per hpf (None-Few); Barbiturate Screen,Urine Negative ng/mL (Cutoff=200); Benzodiazepines Screen,Urine Negative ng/mL (Cutoff=200); Cannabinoid Screen,Urine Positive ng/mL (Cutoff = 50); Cocaine Screen,Urine Negative ng/mL (Cutoff= 300); Hyaline Casts,Urine Few per lpf (None-Few); Opiate Screen,Urine Negative ng/mL (Cutoff=300); Phencyclidine Screen,Urine Negative ng/mL (Cutoff=25); Squamous Epithelial Cell,Urine Many per lpf (None-Few)
[2017-07-21] MEDS ORDERED: Acetaminophen 325 MG TABLET PO PRN (17:33)
[2017-07-21] MEDS ORDERED: Naloxone 0.4 MG/ML INJ IVP PRN (17:33)
--- NOTE | 2017-07-21 17:41 | Internal Med History&Physical ---
Date of Encounter: 07/21/17 Time of Encounter: 17:41 Assessment and Plan (1) Acute encephalopathy Current visit: Yes Status: Acute Patient recently to have been brought in by EMS for wandering. The ER resident , patient was at rest at this morning and released from the police". Is difficult to tell. The patient is homeless currently, he looks disheveled and his baseline mental status is not known Days some history of anoxic brain injury per chart. Patient does and tenderness tobacco and marijuana use, he denies any other illicit substance use. He also has a history of seizure disorder. His workup does not show evidence of recent seizures. Urine toxicology evidence of marijuana use. Head CT chest x-ray unremarkable. However, his hemoglobin is 17.5, and the patient has clinical dehydration. Continue intravenous fluid hydration. Consult social work for safety of patient to live alone. Check Valproate level, resume home dose if WNL (2) History of seizure disorder Current visit: Yes Status: Chronic NO stigmata of recent seizure, continue keppra, check vlproic acid level, resume depakote if WNL (3) Anoxic brain injury Current visit: Yes Status: Chronic History of, baseline mental status unknown, patient states "I honestly cannot remember to almost every question" (4) Dehydration Current visit: Yes Status: Acute IVF hydration, monitor chem Internal Medicine - H&P: HPI Chief complaint: Brought in by EMS for wandering Admitted From: Emergency Dept Plans for Post Hospital Care: Home History of present illness: Mr. Bacon is a 41 year old male with PMH of seizure disorder, short-term memory problem and tobacco and THC use. Patient was brought in by EMS, stated to have been arrested earlier in the day. Patient was acting confused and was brought in for evaluation for the same On the encounter in ED, patient is alert & oriented to self only. States " I honestly don't remember" ROS is unobtainable Work up reveals dehydration without MARIZA, Utox shows THC, CBC shows polycythemia. CXR is unremarkable. Past Med Surg Social Fam HX - Past Medical History Medical history: myocardial infarction, seizures Psychiatric history: no psych history - Past Surgical History Surgical History: orthopedic, other - Social History Smoking Status: Current every day smoker Smokeless Tobacco Status: No Alcohol use: occasionally Drug use: marijuana Internal Medicine - H&P: Meds Divalproex (12 HR) [Depakote (12 HR)] 1,000 mg PO HS 02/03/17 [History] Divalproex (12 HR) [Depakote (12 HR)] 500 mg PO QAM 02/03/17 [History] LevETIRAcetam [Keppra] 1,000 mg PO BID 02/03/17 [History] 3 Allergy/AdvReac Type Severity Reaction Status Date / Time No Known Allergies Allergy Verified 07/21/17 14:51 ROS unobtainable: due to mental status All Systems PM: A 10-system review of systems was performed and is negative for pertinent findings except as documented above in the HPI. - Constitutional Vitals: Temp Pulse Resp BP Pulse Ox 98.6 F 99 18 132/89 96 07/21/17 14:51 07/21/17 17:22 07/21/17 17:22 07/21/17 17:22 07/21/17 17:22 General appearance: Present: A&O X 1 (person only), disheveled - Head Head exam: Present: atraumatic, normocephalic - Eye Eye exam: Present: EOMI, PERRL - ENT ENT exam: Present: mucous membranes dry - Neck Neck exam general surgery: Present: supple, trachea midline. Absent: lymphadenopathy - Respiratory Respiratory exam: Present: CTAB. Absent: accessory muscle use, rales, rhonchi, wheezes - Cardiovascular Cardiovascular exam: Present: RRR, +S1, +S2. Absent: diastolic murmur, gallop, rubs, systolic murmur - GI/Abdominal GI/Abdominal exam: Present: normal bowel sounds, soft, no peritoneal signs. Absent: distended, tenderness - Extremities Exam Extremities exam: Present: warm, radial pulses palpable and symmetrical. Absent : calf tenderness, cyanotic, pedal edema - Neurological Exam Neurological exam: Present: alert, CN II-XII intact, oriented X3, no focal deficits. Absent: pronater drift, facial droop, speech deficit - Skin Skin exam: Present: dry, intact Internal Med - H&P Results - Labs CBC & Chem 7: 07/21/17 15:19 07/21/17 15:19
[2017-07-21] MEDS ORDERED: 0.9 % Sodium Chloride 1,000 ML IVC SCH (17:45)
[2017-07-21] MEDS ORDERED: levETIRAcetam 250 MG TABLET PO SCH (18:00)
[2017-07-21 18:51] LABS: Valproate < 2 mcg/mL (50-100)
[2017-07-22 03:35] VITALS: BP 142/85
--- NOTE | 2017-07-22 06:18 | Event Note ---
Date of Encounter: 07/22/17 Time of Encounter: 06:15 Received update from unit that patient signed AMA paperwork and left. He was reportedly AAO x3 and has capacity to sign out. Left the hospital before i was able to evaluate him.
--- NOTE | 2017-07-23 10:25 | Electrocardiograph Report ---
[address] [place], [place] [address] Test Date: 2017-07-21 Pat Name: Austen Bacon Department: 104 Room: 3B Gender: M Clean [employer] T[employer]: MCKENNA : 1975 Requested By: Maverick Baptiste Order Number: [id number] Reading MD: Ada Troncoso Measurements Intervals Chama Rate: 109 P: 84 IA: 126 QRS: 105 QRSD: 98 T: 65 QT: 300 QTc: 364 Interpretive Statements SINUS TACHYCARDIA RIGHT ATRIAL ENLARGEMENT POSSIBLE LEFT ATRIAL ENLARGEMENT INCOMPLETE RIGHT BUNDLE BRANCH BLOCK VOLTAGE CRITERIA FOR LVH Electronically Signed On 07-23-2017 10:23:17 EST by Ada Troncoso
== END 2017-07-22 06:17 | disposition left against medical advice (07) ==
LOC: 3BNU 14:50 → EMEROO 14:50 → 3BNU 17:43
PROVIDERS: ADMIT Internal Medicine; ATTEND Registered Nurse